=== PATIENT | male | born 1985 | race Caucasian/White ===

== ENCOUNTER 2019-02-01 11:22 | Emergency (ER) | payer MEDICAID, OTHER ==
[~2019-02-01] VITALS: Ht 177.8 cm; Wt 81.8 kg
[~2019-02-01 11:22] MED LIST: NO HOME MEDS
[2019-02-01 11:29] VITALS: BP 123/78
[2019-02-01] MEDS ORDERED: DOXY100C43 PO (12:41)
== END 2019-02-01 12:49 | disposition home or self-care (01) ==
LOC: ER 11:23
DX: N45.1 Epididymitis (principal); Z87.442 Personal history of urinary calculi; Z79.2 Long term (current) use of antibiotics
CPT/HCPCS: 76870; 99284

== ENCOUNTER 2019-05-28 08:51 | Emergency (ER) | payer MEDICAID, OTHER ==
[~2019-05-28] VITALS: Ht 177.8 cm; Wt 90.9 kg
[2019-05-28] MEDS ORDERED: ketorolac trometh inj. 60 MG/2 ML VIAL IM ONE (09:30)
[2019-05-28] MEDS ORDERED: HYDROcodone/acetaminophen 5mg/325mg tablet PO ONE (09:55)
[2019-05-28] MEDS ORDERED: TRAM50TA2 PO (12:03)
[2019-05-28 12:14] VITALS: BP 117/82
== END 2019-05-28 12:16 | disposition home or self-care (01) ==
LOC: ER 08:52
DX: M25.461 Effusion, right knee (principal); F10.99 Alcohol use, unspecified with unspecified alcohol-induced disorder; Z87.442 Personal history of urinary calculi; Y90.9 Presence of alcohol in blood, level not specified
CPT/HCPCS: 29505; 73564; 93971; 96372; 99284; J1885

== ENCOUNTER 2022-11-27 09:06 | Emergency (ER) | payer MEDICAID ==
[~2022-11-27] VITALS: Ht 172.7 cm; Wt 96.3 kg
[2022-11-27 09:41] LABS: BASOPHILS # (AUTO) 0.1 X10'3 (0-0.2); BASOPHILS % (AUTO) 0.6 % (0-1); EOSINOPHILS % (AUTO) 0.1 % (0-6); HEMATOCRIT 48.7 % (42.0-52.0); HEMOGLOBIN 16.7 g/dl (14.0-17.9); LYMPHOCYTES # (AUTO) 2.2 X10'3 (1.1-4.8); LYMPHOCYTES % (AUTO) 16.6 % (21-51); MEAN CORPUSCULAR HEMOGLOBIN 29.9 PG (27.0-31.0); MEAN CORPUSCULAR HGB CONC 34.3 g/dL (33.0-36.5); MEAN CORPUSCULAR VOLUME 87.2 FL (78-98); MEAN PLATELET VOLUME 8.4 FL (7.4-10.4); MONOCYTES # (AUTO) 0.5 X10'3 (0-0.9); MONOCYTES % (AUTO) 3.8 % (2-12); NEUTROPHILS # (AUTO) 10.4 X10'3 (1.8-7.7); NEUTROPHILS % (AUTO) 78.9 % (42-75); PLATELET COUNT 298 X10'3 (140-440); RED BLOOD COUNT 5.58 X10'6 (4.70-6.10); RED CELL DISTRIBUTION WIDTH 12.6 % (11.5-14.5); WHITE BLOOD COUNT 13.2 X10'3 (4.5-11.0)
[2022-11-27 10:07] LABS: ALANINE AMINOTRANSFERASE 31 U/L (12-78); ALBUMIN 4.6 G/DL (3.4-5.0); ALBUMIN/GLOBULIN RATIO 1.2 (1.1-1.5); ALKALINE PHOSPHATASE 78 IU/L (46-116); AMYLASE 48 U/L (25-115); ANION GAP 11 (8-16); ASPARTATE AMINO TRANSFERASE 15 U/L (10-37); BILIRUBIN,TOTAL 0.7 MG/DL (0.1-1.0); BLOOD UREA NITROGEN 13 MG/DL (7-18); BUN/CREATININE RATIO 13.5 (10.0-20.0); CALCIUM 9.4 MG/DL (8.5-10.1); CHLORIDE 101 MMOL/L (99-107); CREATININE 0.96 MG/DL (0.60-1.10); GLUCOSE 126 MG/DL (70-104); LIPASE < 50 U/L (73-393); POTASSIUM 4.2 MMOL/L (3.5-5.1); SODIUM 137 MMOL/L (135-145); TOTAL CARBON DIOXIDE 24.8 MMOL/L (24-32); TOTAL PROTEIN 8.4 G/DL (6.4-8.2); eGFR 87 ML/MIN
[2022-11-27 11:12] LABS: CLARITY,URINE CLEAR (Clear); COLOR,URINE YELLOW (Yellow); GLUCOSE, URINE NEGATIVE (Neg); KETONES,URINE NEGATIVE (Neg); LEUKOCYTE ESTERASE ,URINE NEGATIVE (Neg); NITRITES, URINE NEGATIVE (Neg); OCCULT BLOOD,URINE NEGATIVE (Neg); PROTEIN,URINE NEGATIVE (Neg); UROBILINOGEN,URINE 0.2 E.U/dL (0.2-1.0)
[2022-11-27 11:18] LABS: UA COLLECTION TYPE VOIDED
[2022-11-27] MEDS ORDERED: OMEP40CA21 PO (11:58)
[2022-11-27] MEDS ORDERED: ONDA4TAB12 PO (11:58)
[2022-11-27] MEDS ORDERED: ondansetron 4mg rapidly disintigrating tab PO ONE (12:10)
[2022-11-27 12:21] VITALS: BP 161/96
== END 2022-11-27 12:23 | disposition home or self-care (01) ==
LOC: ER 09:06
DX: R10.13 Epigastric pain (principal); R11.2 Nausea with vomiting, unspecified; R00.1 Bradycardia, unspecified; R05.9 Cough, unspecified; K59.00 Constipation, unspecified; Z87.442 Personal history of urinary calculi; Z72.89 Other problems related to lifestyle; Z79.899 Other long term (current) drug therapy
CPT/HCPCS: 36415; 80053; 81003; 82150; 83690; 85025; 93005; 99284

== ENCOUNTER 2022-12-01 10:30 | Emergency (ER) | payer MEDICAID ==
[~2022-12-01] VITALS: Ht 177.8 cm; Wt 110.0 kg
[~2022-12-01 10:30] MED LIST changes: +OMEP40CA21 PO; +ONDA4TAB12 PO
[2022-12-01 11:17] LABS: BASOPHILS # (AUTO) 0.1 X10'3 (0-0.2); BASOPHILS % (AUTO) 0.6 % (0-1); EOSINOPHILS # (AUTO) 0.1 X10'3 (0-0.9); EOSINOPHILS % (AUTO) 0.9 % (0-6); HEMATOCRIT 48.6 % (42.0-52.0); HEMOGLOBIN 16.5 g/dl (14.0-17.9); LYMPHOCYTES # (AUTO) 2.2 X10'3 (1.1-4.8); LYMPHOCYTES % (AUTO) 20.8 % (21-51); MEAN CORPUSCULAR HEMOGLOBIN 29.5 PG (27.0-31.0); MEAN CORPUSCULAR VOLUME 86.7 FL (78-98); MEAN PLATELET VOLUME 8.1 FL (7.4-10.4); MONOCYTES # (AUTO) 0.6 X10'3 (0-0.9); MONOCYTES % (AUTO) 5.4 % (2-12); NEUTROPHILS # (AUTO) 7.7 X10'3 (1.8-7.7); NEUTROPHILS % (AUTO) 72.3 % (42-75); PLATELET COUNT 287 X10'3 (140-440); RED CELL DISTRIBUTION WIDTH 12.7 % (11.5-14.5); WHITE BLOOD COUNT 10.7 X10'3 (4.5-11.0)
[2022-12-01 11:39] LABS: ALANINE AMINOTRANSFERASE 30 U/L (12-78); ALBUMIN 4.3 G/DL (3.4-5.0); ALBUMIN/GLOBULIN RATIO 1.2 (1.1-1.5); ALKALINE PHOSPHATASE 68 IU/L (46-116); ANION GAP 13 (8-16); ASPARTATE AMINO TRANSFERASE 16 U/L (10-37); BILIRUBIN,TOTAL 0.6 MG/DL (0.1-1.0); BLOOD UREA NITROGEN 16 MG/DL (7-18); BUN/CREATININE RATIO 17.6 (10.0-20.0); CALCIUM 9.2 MG/DL (8.5-10.1); CHLORIDE 101 MMOL/L (99-107); CREATININE 0.91 MG/DL (0.60-1.10); GLUCOSE 134 MG/DL (70-104); LIPASE < 50 U/L (73-393); POTASSIUM 4.1 MMOL/L (3.5-5.1); SODIUM 137 MMOL/L (135-145); TOTAL CARBON DIOXIDE 23.1 MMOL/L (24-32); TOTAL PROTEIN 7.9 G/DL (6.4-8.2); eGFR > 90 ML/MIN
[2022-12-01 13:16] LABS: CLARITY,URINE CLEAR (Clear); COLOR,URINE YELLOW (Yellow); GLUCOSE, URINE NEGATIVE (Neg); KETONES,URINE NEGATIVE (Neg); LEUKOCYTE ESTERASE ,URINE NEGATIVE (Neg); NITRITES, URINE NEGATIVE (Neg); OCCULT BLOOD,URINE NEGATIVE (Neg); PROTEIN,URINE NEGATIVE (Neg); UROBILINOGEN,URINE 0.2 E.U/dL (0.2-1.0)
[2022-12-01 13:18] LABS: UA COLLECTION TYPE CLN CATCH MIDSTREAM
[2022-12-01 13:48] VITALS: BP 156/87
== END 2022-12-01 13:50 | disposition home or self-care (01) ==
LOC: ER 10:31
DX: R10.13 Epigastric pain (principal); R11.2 Nausea with vomiting, unspecified; Z87.442 Personal history of urinary calculi; Z72.89 Other problems related to lifestyle; Z79.899 Other long term (current) drug therapy
CPT/HCPCS: 36415; 76700; 80053; 81003; 83690; 85025; 99284

== ENCOUNTER 2023-10-04 20:47 | Emergency (ER) | payer MEDICAID, OTHER ==
[~2023-10-04] VITALS: Ht 172.7 cm; Wt 125.0 kg
[~2023-10-04 20:47] MED LIST changes: -OMEP40CA21 PO
[2023-10-04 21:12] VITALS: TEMP 98.8
[2023-10-05] MEDS ORDERED: AMLO-708 PO (01:21)
[2023-10-05 01:36] VITALS: BP 160/99; PULSE 71; RESP 14; O2SAT 98
== END 2023-10-05 01:38 | disposition home or self-care (01) ==
LOC: ER 20:48
DX: R03.0 Elevated blood-pressure reading, without diagnosis of hypertension (principal); R51.9 Headache, unspecified; Z79.899 Other long term (current) drug therapy
CPT/HCPCS: 99283